=== PATIENT | female | born 1995 | race Caucasian/White ===

== ENCOUNTER 2024-10-17 20:41 | Emergency (ER) | payer SELFPAY ==
[~2024-10-17] VITALS: Ht 165.1 cm; Wt 59.0 kg
[2024-10-17 21:01] VITALS: O2SAT 99
[2024-10-17] MEDS: SODIUM CHLORIDE 0.9% 1,000 ML IV ONE (21:45)
[2024-10-17 23:30] LABS: BASOPHILS % 0.7 % (0.0-2.0); EOSINOPHILS % 2.9 % (0.0-5.0); HEMATOCRIT. 28.5 % (36.0-48.0); HEMOGLOBIN. 9.0 g/dL (12.0-16.0); LYMPHOCYTES % 32.7 % (20.0-50.0); MEAN PLATELET VOLUME 7.2 fl (7.4-10.4); MONOCYTES % 9.6 % (2.0-8.0); NEUTROPHILS % 54.1 % (40.0-76.0); PLATELET 413 x1000/uL (130-400); RED BLOOD CELL COUNT 3.74 mill/uL (4.2-5.4); RED CELL DISTRIBUTION WIDTH 17.0 % (11.6-14.6)
[2024-10-17 23:42] LABS: CREATININE 0.8 mg/dL (0.6-1.0)
[2024-10-17 23:43] LABS: ETHANOL BLOOD < 10 mg/dL (<10); UREA NITROGEN BLOOD 16 mg/dL (9-23)
[2024-10-17 23:44] LABS: ASPARTATE AMINOTRANSFERASE 16 IU/L (<34)
[2024-10-17 23:45] LABS: BILIRUBIN DIRECT 0.1 mg/dL (<=3.0); BILIRUBIN TOTAL 0.3 mg/dL (0.1-1.0); PROTEIN TOTAL 6.2 g/dL (6.0-8.3)
[2024-10-17 23:59] LABS: HCG SCREEN NEGATIVE
[2024-10-18] LABS: *AMPHETAMINES SCREEN URINE PRESUMPTIVE POSITIVE (NEGATIVE)
[2024-10-18 00:01] LABS: *BARBITURATES SCREEN URINE NEGATIVE (NEGATIVE); *BENZODIAZEPINES SCREEN URINE PRESUMPTIVE POSITIVE (NEGATIVE); *COCAINE SCREEN URINE NEGATIVE (NEGATIVE); METHADONE URINE SCREEN NEGATIVE (NEGATIVE); OPIATES URINE SCREEN NEGATIVE (NEGATIVE); PHENCYCLIDINE URINE SCREEN NEGATIVE (NEGATIVE)
[2024-10-18 00:04] LABS: CANNABINOID URINE SCREEN NEGATIVE (NEGATIVE); ECSTASY MDMA SCREEN URINE CONF.TEST INDICATED (NEGATIVE)
[2024-10-18 01:39] VITALS: BP 98/65; PULSE 96; RESP 18; TEMP 36.7; O2SAT 100
== END 2024-10-18 05:35 | disposition home or self-care (01) ==
LOC: ER 20:41
DX: T50.991A Poisoning by other drugs, medicaments and biological substances, accidental (unintentional), initial encounter (principal); R46.2 Strange and inexplicable behavior; R00.0 Tachycardia, unspecified; R41.0 Disorientation, unspecified; Z79.899 Other long term (current) drug therapy; Y92.89 Other specified places as the place of occurrence of the external cause
CPT/HCPCS: 80076; 80305; 80048; 81025; 80307; 80329; 80320; 84703; 85025; 36415; 70450; 93005; 99284; 87426; J7030; G0480